=== PATIENT | female | born 1960 | race Caucasian/White ===

== ENCOUNTER 2017-04-20 17:38 | Emergency (ER) | payer BC ==
[2017-04-20 18:19] LABS: #Basophils 0.1 thou/uL (0.0-0.2); #Eosinphils 0.2 thou/uL (0.0-0.7); #Lymphocytes 2.9 thou/uL (1.20-3.40); #Monocytes 0.7 thou/uL (0.11-0.59); #Neutrophils 3.3 thou/uL (1.40-6.50); %Basophils 0.8 % (0.0-1.0); %Eosinophils 2.4 % (0.0-10.0); %Lymphocytes 41.2 % (21.0-51.0); %Monocytes 9.2 % (0.0-10.0); %Neutrophils 46.4 % (42.0-75.0); Hemoglobin 14.8 g/dL (12.0-16.0); Mean Corpuscular HGB CONC 31.9 g/dL (32.0-36.0); Mean Corpuscular Hemoglobin 29.2 pg (27.0-31.0); Mean Corpuscular Volume 91.7 fl (81.0-99.0); Mean Platelet Volume 7.4 fL (7.4-10.4); Platelet Count 247 thou/uL (130-400); RBC Distribution Width 13.7 % (11.5-14.5); Red Blood Cell (RBC) Count 5.07 mill/uL (4.20-5.40); White Blood Cell (WBC) Count 7.1 thou/uL (4.8-10.8)
[2017-04-20] MEDS ORDERED: cefTRIAXone\\ROCEPHIN 2 GM in Sodium Chloride 0.9% 100 ML IVPB SCH (18:30)
[2017-04-20 18:44] LABS: ALT (SGPT) 51 U/L (8-55); AST (SGOT) 44 U/L (5-34); Albumin 4.1 g/dL (3.5-5.0); Alkaline Phosphatase 173 U/L (40-150); Anion Gap 18 mmol/L (10-20); BUN (Urea Nitrogen) 9 mg/dL (9.8-20.1); Bilirubin, Total Less than 0.2 mg/dL (0.2-1.2); Calc. Creatinine Clearance 0 mL/min (70-130); Carbon Dioxide 21 mmol/L (22-29); Chloride 109 mmol/L (98-107); Estimated GFR-MDRD 88; Globulin 3.1 g/dL (2.4-3.5); Glucose 161 mg/dL (70-105); Potassium 3.7 mmol/L (3.5-5.1); Protein, Total 7.2 g/dL (6.0-8.3); Sodium 144 mmol/L (136-145)
[2017-04-20 19:28] LABS: Bilirubin Negative (Negative); Blood, Urine Negative (Negative); Clarity CLEAR (Clear); Glucose, Urine (Dipstick) Negative (Negative); Leukocyte Negative (Negative); Nitrite Negative (Negative); Protein, Urine (Dipstick) Negative (Neg-Trace); Specific Gravity, Urine 1.008 (1.002-1.036); Urobilinogen 0.2 mg/dL (0.2-1.0); pH, Urine 6.5 (5.0-9.0)
--- NOTE | 2017-04-20 20:08 | RAD ---
PORTABLE CHEST: Date: 04-20-17 Provided Clinical History: Altered mental status. FINDINGS: No comparisons. Cardiac silhouette is within normal limits for portable technique. Atherosclerosis is noted involving the thoracic aorta. Lungs are hypoinflated with probable accentuation of the pulmonary bronchovascul ar markings. No definite focal airspace disease, pleural fluid or pneumothorax apparent. IMPRESSION: No definite evidence for an acute cardiopulmonary process. POS: [facility]
[2017-04-20] MEDS ORDERED: Albuterol Sulfate 1.25 MG/3 ML NEB ONE (20:48)
[2017-04-20] MEDS ORDERED: Albuterol Sulfate 2.5 mg/0.5 ml Neb ONE ×2 (20:49→21:22)
[2017-04-20] MEDS ORDERED: Azithromycin 500 MG in Sodium Chloride 0.9% 250 ML 250 ML IVPB SCH (21:00)
[2017-04-20] MEDS ORDERED: Ketorolac Tromethamine 30 MG/ML VIAL ONE (21:08)
[2017-04-20] MEDS ORDERED: methylPREDNISolone Sod Succ/PF 125 MG/2 ML VIAL ONE (21:08)
[2017-04-20] MEDS ORDERED: Water For Inject, Bacteriostat 30 ML ONE (21:09)
[2017-04-20] MEDS ORDERED: Azithromycin 250 MG TAB ONE (21:48)
[2017-04-20 22:14] LABS: Lactic Acid 2.5 mmol/L (0.5-2.2)
== END 2017-04-20 22:30 | disposition home or self-care (01) ==
LOC: ERS 17:38
DX: J18.9 Pneumonia, unspecified organism (principal); J45.909 Unspecified asthma, uncomplicated
CPT/HCPCS: 36415; 71045; 80053; 80307; 81003; 82140; 83605; 83880; 85025; 87040; 87086; 93005; 94640; 96361; 96365; 96375; J0456; J0696; J1885; J2930; J7050; J7611

== ENCOUNTER 2020-11-12 14:30 | Outpatient (CLI) | payer BC | END 2020-11-12 14:31 | disposition home or self-care (01) | LOC: BICRAD 14:30 | PROVIDERS: ATTEND Specialist | DX: M25.561 Pain in right knee (principal); M25.461 Effusion, right knee ==

== ENCOUNTER → 2021-03-11 | Outpatient (CLI) | payer BC | LOC: EDSTATUS 09:28 → RAD 17:00 → ER/OP 17:00 | PROVIDERS: ATTEND Specialist | DX: M46.1 Sacroiliitis, not elsewhere classified (principal); M25.552 Pain in left hip; M47.818 Spondylosis without myelopathy or radiculopathy, sacral and sacrococcygeal region; M47.816 Spondylosis without myelopathy or radiculopathy, lumbar region | CPT/HCPCS: 72220 ==